=== PATIENT | male | born 1995 | race Two or more races ===

== ENCOUNTER 2018-11-09 09:02 | Inpatient (IN) | payer SELFPAY ==
[~2018-11-09] VITALS: Ht 198.1 cm; Wt 108.0 kg
[2018-11-09] MEDS ORDERED: FAMOTIDINE 20MG/2ML VIAL IV STA (09:12)
[2018-11-09] MEDS ORDERED: SODIUM CHLORIDE 0.9% 1,000 ML IV ONE (09:12)
[2018-11-09] MEDS ORDERED: ONDANSETRON HCL 4MG/2ML INJ IV STA (09:12)
[2018-11-09 09:55] LABS: BASOPHILS % 0.4 % (0.0-2.0); EOSINOPHILS % 0.6 % (0.0-5.0); HEMATOCRIT. 47.9 % (42.0-52.0); HEMOGLOBIN. 16.6 g/dL (14.0-18.0); LYMPHOCYTES % 19.5 % (20.0-50.0); MEAN CORPUSCULAR HEMOGLOBIN 30.4 pg (28.0-32.0); MEAN PLATELET VOLUME 9.1 fl (7.4-10.4); MONOCYTES % 4.7 % (2.0-8.0); NEUTROPHILS % 74.8 % (40.0-76.0); PLATELET 370 x1000/uL (130-400); RED BLOOD CELL COUNT 5.44 mill/uL (4.7-6.1); RED CELL DISTRIBUTION WIDTH 13.6 % (11.6-14.6)
[2018-11-09 09:59] LABS: CHLORIDE 109 mEq/L (98-107)
[2018-11-09] MEDS ORDERED: PANTOPRAZOLE SODIUM 40 MG/VIAL IV ONE (10:00)
[2018-11-09] MEDS ORDERED: NITROGLYCERIN OINT 1GM/INCH UDPKT TD ONE (10:00)
[2018-11-09 10:02] LABS: PROTHROMBIN TIME 10.7 sec (9.6-11.0)
[2018-11-09 10:05] LABS: ETHANOL BLOOD < 10 mg/dL
[2018-11-09] MEDS ORDERED: VISCOUS LIDOCAINE 2% 15 ML UDC MM STA (11:04)
[2018-11-09] MEDS ORDERED: MAGNESIUM/ALUMINUM HYDROXIDE/SIMETHICONE 30ML UDC PO ONE (11:15)
[2018-11-09 11:47] LABS: CLARITY URINE CLEAR (CLEAR); COLOR URINE YELLOW (YELLOW); KETONES URINE TRACE (NEGATIVE); LEUKOCYTE ESTERASE URINE NEGATIVE (NEGATIVE); NITRITE URINE NEGATIVE (NEGATIVE); OCCULT BLOOD URINE NEGATIVE (NEGATIVE); PH URINE 6.5 (4.5-8.0); PROTEIN URINE NEGATIVE (NEGATIVE); SPECIFIC GRAVITY URINE 1.014 (1.005-1.030); UROBILINOGEN URINE 0.2 E.U./dL (0.2-1.0)
[2018-11-09 12:11] LABS: *AMPHETAMINES SCREEN URINE NEGATIVE (NEGATIVE); *BARBITURATES SCREEN URINE NEGATIVE (NEGATIVE); *BENZODIAZEPINES SCREEN URINE NEGATIVE (NEGATIVE); *COCAINE SCREEN URINE NEGATIVE (NEGATIVE)
[2018-11-09 12:12] LABS: CANNABINOID URINE SCREEN PRESUMTIVE POSITIVE (NEGATIVE); METHADONE URINE SCREEN NEGATIVE (NEGATIVE); OPIATES URINE SCREEN NEGATIVE (NEGATIVE); PHENCYCLIDINE URINE SCREEN NEGATIVE (NEGATIVE)
[2018-11-09] MEDS ORDERED: SODIUM CHLORIDE 0.9% 1,000 ML IV SCH (12:51)
[2018-11-09] MEDS ORDERED: CLONIDINE 0.1MG TABLET PO PRN (13:00)
[2018-11-09] MEDS ORDERED: GUAIFENESIN 200MG/10ML SUGAR FREE UDC PO PRN (13:00)
[2018-11-09] MEDS ORDERED: DOCUSATE SODIUM 100MG CAPSULE PO PRN (13:00)
[2018-11-09] MEDS ORDERED: HYDROMORPHONE HCL/PF 2MG/ML CPJ IV PRN (13:00)
[2018-11-09] MEDS ORDERED: PIPERACILLIN/TAZ 3.375G PREMIX 50 ML IV SCH ×2 (13:00→14:30)
[2018-11-09] MEDS ORDERED: DIPHENHYDRAMINE 50MG/ML VIAL IV PRN (13:00)
[2018-11-09] MEDS ORDERED: MAGNESIUM/ALUMINUM HYDROXIDE/SIMETHICONE 30ML UDC PO PRN (13:00)
[2018-11-09] MEDS ORDERED: ACETAMINOPHEN 325MG TABLET PO PRN (13:00)
[2018-11-09] MEDS ORDERED: HYDROCODONE/ACETAMINOPHEN 5/325MG TABLET PO PRN (13:00)
[2018-11-09] MEDS ORDERED: NA PHOS,M-B/NA PHOS,DI-BA ENEMA 118ML PR PRN (13:00)
[2018-11-09] MEDS ORDERED: LORAZEPAM 2MG/ML CPJ IV PRN (13:00)
[2018-11-09] MEDS ORDERED: POTASSIUM CHLORIDE 20MEQ TABLET SR PO SCH (13:45)
[2018-11-09 13:55] VITALS: BP 119/90
[2018-11-09 14:00] VITALS: BP 119/60
[2018-11-09] MEDS ORDERED: ASPIRIN 81MG EC TABLET PO SCH (14:30)
[2018-11-09 16:00] VITALS: BP 164/93
[2018-11-09] MEDS: DEXT 5%/0.45% NACL KCL 40MEQ/L 1,000 ML IV SCH (16:00)
[2018-11-09] MEDS ORDERED: PIPERACILLIN/TAZOBACTAM 3.375 G in DEXT 5% WATER 100 ML IV SCH (16:00)
[2018-11-09] MEDS ORDERED: DIPHENHYDRAMINE 50MG/ML VIAL IV NR (17:15)
[2018-11-09 18:00] VITALS: BP 157/83
[2018-11-09] MEDS: IPRATROPIUM/ALBUTEROL 0.5-3(2.5)MG/3ML NEB HHN SCH ×2 (18:04→20:20)
[2018-11-09] MEDS: METRONIDAZOLE 500 MG PREMIX 100 ML IV SCH (19:05)
[2018-11-09 20:00] VITALS: BP 135/70
[2018-11-09 21:05] LABS: CHLORIDE 107 mEq/L (98-107)
[2018-11-09 22:00] VITALS: BP 128/85
[2018-11-10] VITALS (11 sets, daily range): BP systolic 104–160; BP diastolic 45–97
[2018-11-10] MEDS: IPRATROPIUM/ALBUTEROL 0.5-3(2.5)MG/3ML NEB HHN SCH ×6 (00:35→21:01)
[2018-11-10] MEDS: METRONIDAZOLE 500 MG PREMIX 100 ML IV SCH ×3 (03:14→17:56)
[2018-11-10] MEDS: DEXT 5%/0.45% NACL KCL 40MEQ/L 1,000 ML IV SCH ×2 (05:19→15:18)
[2018-11-10 08:17] LABS: BASOPHILS % 0.3 % (0.0-2.0); EOSINOPHILS % 0.3 % (0.0-5.0); HEMATOCRIT. 40.7 % (42.0-52.0); HEMOGLOBIN. 14.1 g/dL (14.0-18.0); LYMPHOCYTES % 28.3 % (20.0-50.0); MEAN CORPUSCULAR HEMOGLOBIN 30.7 pg (28.0-32.0); MEAN CORPUSCULAR VOLUME 88.7 fL (80.0-94.0); MEAN PLATELET VOLUME 9.3 fl (7.4-10.4); MONOCYTES % 9.7 % (2.0-8.0); NEUTROPHILS % 61.4 % (40.0-76.0); PLATELET 309 x1000/uL (130-400); RED BLOOD CELL COUNT 4.59 mill/uL (4.7-6.1); RED CELL DISTRIBUTION WIDTH 13.8 % (11.6-14.6)
[2018-11-10 08:39] LABS: CHLORIDE 108 mEq/L (98-107)
[2018-11-10 09:05] LABS: HDL CHOLESTEROL 36 mg/dL (40-59); LDL CHOLESTEROL 93 mg/dL (5-100); T4 FREE 1.37 ng/dL (0.76-1.46)
[2018-11-10] MEDS ORDERED: POTASSIUM CHLORIDE 20MEQ TABLET SR PO NR (09:30)
[2018-11-10] MEDS: ONDANSETRON HCL 4MG/2ML INJ IV PRN (17:56)
[2018-11-11] VITALS (9 sets, daily range): BP systolic 80–172; BP diastolic 31–86
[2018-11-11] MEDS: IPRATROPIUM/ALBUTEROL 0.5-3(2.5)MG/3ML NEB HHN SCH ×2 (00:21→04:00)
[2018-11-11] MEDS: DEXT 5%/0.45% NACL KCL 40MEQ/L 1,000 ML IV SCH (01:17)
[2018-11-11] MEDS: METRONIDAZOLE 500 MG PREMIX 100 ML IV SCH ×2 (01:20→10:30)
[2018-11-11 07:09] LABS: CHLORIDE 108 mEq/L (98-107)
[2018-11-11 08:59] LABS: BASOPHILS % 0.2 % (0.0-2.0); EOSINOPHILS % 1.3 % (0.0-5.0); HEMATOCRIT. 42.3 % (42.0-52.0); HEMOGLOBIN. 14.8 g/dL (14.0-18.0); MEAN CORPUSCULAR HEMOGLOBIN 31.2 pg (28.0-32.0); MEAN CORPUSCULAR VOLUME 88.9 fL (80.0-94.0); MEAN PLATELET VOLUME 8.6 fl (7.4-10.4); MONOCYTES % 8.3 % (2.0-8.0); NEUTROPHILS % 57.2 % (40.0-76.0); PLATELET 313 x1000/uL (130-400); RED BLOOD CELL COUNT 4.76 mill/uL (4.7-6.1); RED CELL DISTRIBUTION WIDTH 13.5 % (11.6-14.6)
[2018-11-11] MEDS: ONDANSETRON HCL 4MG/2ML INJ IV PRN (10:15)
[2018-11-11] MEDS ORDERED: NON FORMULARY PATIENT HOME MED XX SCH (12:30)
[2018-11-11] MEDS ORDERED: FAMOTIDINE 20MG/2ML VIAL IV SCH (12:30)
[2018-11-11 12:33] LABS: BG BASE EXCESS 0.1 mmol/L (-2.0-2.0); BG CARBOXYHEMOGLOBIN 0.4 % (0.5-1.5); BG DEOXYHEMOGLOBIN 1.8 % (0.0-5.0); BG FRACTION INSPIRED OXYGEN 28; BG HCO3 ACT 25.1 mmol/L (22.0-26.0); BG METHEMOGLOBIN 0.3 % (0.0-1.5); BG OXYGEN SATURATION 98.2 % (92.0-98.5); BG OXYHEMOGLOBIN 97.5 % (94.0-97.0); BG PH 7.395 (7.350-7.450); BG PO2 113.7 mmHg (75.0-100.0); BG SAMPLE SITE LEFT RADIAL; BG TOTAL HEMOGLOBIN 15.9 g/dL (12.0-18.0); BG VENT MODE NASAL CANNULA
[2018-11-11] MEDS ORDERED: IPRATROPIUM/ALBUTEROL 0.5-3(2.5)MG/3ML NEB HHN PRN (18:00)
[2018-11-11] MEDS ORDERED: METRONIDAZOLE 500MG TABLET PO SCH (18:00)
== END 2018-11-11 15:48 | disposition home or self-care (01) | DRG 241 ==
LOC: ER 09:08 → ENRESERV 11:47 → 5EST 14:19
PROVIDERS: ADMIT Internal Medicine; ATTEND Internal Medicine
DX: K29.70 Gastritis, unspecified, without bleeding (principal); J96.00 Acute respiratory failure, unspecified whether with hypoxia or hypercapnia; R65.10 Systemic inflammatory response syndrome (SIRS) of non-infectious origin without acute organ dysfunction; E86.0 Dehydration; E87.6 Hypokalemia; F17.210 Nicotine dependence, cigarettes, uncomplicated; J44.9 Chronic obstructive pulmonary disease, unspecified; R73.9 Hyperglycemia, unspecified; F12.90 Cannabis use, unspecified, uncomplicated; E66.9 Obesity, unspecified; J98.01 Acute bronchospasm; Z68.27 Body mass index [BMI] 27.0-27.9, adult
CPT/HCPCS: 36415; 36600; 71045; 71250; 74176; 80048; 80061; 80305; 80320; 81003; 82375; 82805; 82962; 83036; 83880; 84439; 84443; 84484; 93005; 94640; 96374; 99285; C9113; J1170; J1200; J2060; J2405; J2543; J3490; J7030; J7060; J7620; G0480

== ENCOUNTER 2021-10-22 15:02 | Emergency (ER) | payer SELFPAY ==
[~2021-10-22] VITALS: Ht 177.8 cm; Wt 70.0 kg
[2021-10-22] MEDS ORDERED: FAMOTIDINE 20MG/2ML VIAL IV STA (15:37)
[2021-10-22] MEDS ORDERED: ONDANSETRON HCL 4MG/2ML INJ IV STA (15:37)
[2021-10-22] MEDS ORDERED: SODIUM CHLORIDE 0.9% 1,000 ML IV ONE (15:45)
[2021-10-22 19:59] LABS: BASOPHILS % 0.2 % (0.0-2.0); EOSINOPHILS % 0.1 % (0.0-5.0); HEMATOCRIT. 48.3 % (42.0-52.0); HEMOGLOBIN. 16.2 g/dL (14.0-18.0); MEAN CORPUSCULAR HEMOGLOBIN 29.8 pg (28.0-32.0); MEAN CORPUSCULAR VOLUME 88.9 fL (80.0-94.0); MEAN PLATELET VOLUME 9.1 fl (7.4-10.4); MONOCYTES % 6.8 % (2.0-8.0); NEUTROPHILS % 76.9 % (40.0-76.0); PLATELET 369 x1000/uL (130-400); RED BLOOD CELL COUNT 5.44 mill/uL (4.7-6.1); RED CELL DISTRIBUTION WIDTH 13.1 % (11.6-14.6)
[2021-10-22 20:06] LABS: INR 1.1; PROTHROMBIN TIME 11.8 sec (9.6-11.0)
[2021-10-22 20:08] LABS: CHLORIDE 98 mEq/L (98-107)
[2021-10-22] MEDS ORDERED: FAMOTIDINE 20MG/2ML VIAL IV NR (20:15)
[2021-10-22] MEDS ORDERED: ONDANSETRON HCL 4MG/2ML INJ IV NR (20:15)
[2021-10-22] MEDS ORDERED: MAGNESIUM/ALUMINUM HYDROXIDE/SIMETHICONE 30ML UDC PO STA (20:17)
[2021-10-22] MEDS ORDERED: VISCOUS LIDOCAINE 2% 15 ML UDC PO STA (20:17)
[2021-10-22] MEDS ORDERED: POTASSIUM CHLORIDE 20MEQ TABLET SR PO ONE (20:30)
[2021-10-22] MEDS ORDERED: ONDA4TAB11 PO (20:42)
[2021-10-22] MEDS ORDERED: FAMO-135 MT (20:42)
[2021-10-22 21:50] VITALS: BP 129/66
== END 2021-10-22 21:52 | disposition home or self-care (01) ==
LOC: ER 15:02
DX: K29.70 Gastritis, unspecified, without bleeding (principal); F17.210 Nicotine dependence, cigarettes, uncomplicated; Z71.6 Tobacco abuse counseling
CPT/HCPCS: 36415; 74176; 80053; 83690; 85025; 85610; 93005; 96361; 96374; 96375; 99284; 99406; J2405; J3490; J7030; Z7610